=== PATIENT | female | born 1950 | race Caucasian/White ===

== ENCOUNTER 2017-03-17 02:12 | Emergency (ER) | payer OTHER, MEDICAID ==
[~2017-03-17] VITALS: Ht 160 cm; Wt 65.0 kg
[~2017-03-17 02:12] MED LIST: ADVA250A INH; POTA-243 PO; PRIL20TA2 PO; SERT100 PO; VENTAER INH
[2017-03-17 02:26] VITALS: BP 176/87; PULSE 96; RESP 18; TEMP 98.6; O2SAT 98
[2017-03-17] MEDS ORDERED: ONDANSETRON ODT 4 MG TAB PO ONE (03:00)
[2017-03-17] MEDS ORDERED: MORPHINE SULFATE 4 MG/ML INJ IM ONE (03:00)
--- NOTE | 2017-03-17 03:25 | PD ---
HPI . Nausea and vomiting Chief Complaint: GI Complaint Time Seen by Provider: 02:50 Travel History International Travel<30 days: No Contact w/Intl Traveler<30days: No Traveled to known affect area: No History of Present Illness HPI Patient presents with chief complaint of nausea and vomiting. Onset was about 8 PM. She reports several episodes of emesis. No fever. No diarrhea. This patient is status post right ureteral stent yesterday for kidney stone. She states that she vomited her pain medication tonight. She reports right flank pain which she rates 10/10. PFSH Past Medical History Cancer: No Cardiovascular Problems: No Diabetes: No Glaucoma: No Hepatitis: No Hiatal Hernia: No Hypertension: No Medical other: No Respiratory: Yes (ASTHMA) Immunizations Current: Yes Thyroid Disease: No Tetanus Vaccination: Unknown Influenza Vaccination: Yes Past Surgical History Abdominal Surgery: Yes (EXPLORATORY SURGERY,GALL BLADDER) Gynecologic Surgery: Yes (HYSTERECTOMY) Oral Surgery: Yes (TONSILLECTOMY) Pacemaker: No Other Surgery: Yes Social History Alcohol Use: No Tobacco Use: No Substance Use: No Allergies-Medications (Allergen,Severity, Reaction): Coded Allergies: aspirin (Unverified Allergy, Severe, NAUSEA AND VOMITING, 03/17/17) diatrizoate meglumine (Unverified Allergy, Severe, RASH, 03/17/17) gadobenic acid (Unverified Allergy, Severe, RASH, 03/17/17) gadodiamide (Unverified Allergy, Severe, RASH, 03/17/17) gadoteridol (Unverified Allergy, Severe, RASH, 03/17/17) iodixanol (Unverified Allergy, Severe, RASH, 03/17/17) iohexol (Unverified Allergy, Severe, RASH, 03/17/17) penicillin G (Unverified Allergy, Severe, DROWSY, NAUSEA AND VOMITING, 03/17/17) Reported Meds & Prescriptions Reported Meds & Active Scripts Active Reported Ventolin Hfa (Albuterol Sulfate) 18 Gm Aero 2 Puff INH Q4HPRN * SHAKE WELL BEFORE USE * Advair Diskus 250/50 (Salmeterol Xinafoate/Fluticasone) 250 Mcg/50 Mcg Inhp 1 Puff INH BIDPRN K-Dur (Potassium Chloride) 10 Meq Tabcr 0 PO DAILY UNKNOWN DOSE Prilosec Otc (Omeprazole Magnesium) 20 Mg Tab 20 Mg PO DAILY Zoloft (Sertraline HCl) 100 Mg Tab 100 Mg PO DAILY Review of Systems Except as stated in HPI: all other systems reviewed are Neg General / Constitutional: No: Fever, Chills Gastrointestinal: Positive: Nausea, Vomiting Genitourinary: Positive: Flank Pain Physical Exam Narrative GENERAL: Patient is lying on the stretcher with an emesis bag in her lap. SKIN: warm/dry. Normal color. HEAD: Normocephalic. Atraumatic. EYES: Pupils equal and round. No scleral icterus. No injection or drainage. ENT: No nasal bleeding or discharge. Mucous membranes pink and moist. NECK: Trachea midline. Full range of motion without pain.. CARDIOVASCULAR: Regular rate and rhythm. Heart sounds are normal. RESPIRATORY: No accessory muscle use. Clear to auscultation. Breath sounds equal bilaterally. GASTROINTESTINAL: Abdomen soft. Right sided tenderness. Right CVA tenderness. Bowel sounds present. Nondistended. MUSCULOSKELETAL: No obvious deformities. NEUROLOGICAL: Awake and alert. No obvious cranial nerve deficits. Motor grossly within normal limits. Normal speech. PSYCHIATRIC: Appropriate mood and affect; insight and judgment normal. Data Data Last Documented VS Vital Signs Date Time Temp Pulse Resp B/P (MAP) Pulse Ox O2 Delivery O2 Flow Rate FiO2 03/17/17 03:31 16 03/17/17 02:26 98.6 96 176/87 (116) 98 Orders Orders Ondansetron Odt (Zofran Odt) (03/17/17 03:00) Morphine Inj (Morphine Inj) (03/17/17 03:00) MDM Medical Decision Making Medical Screen Exam Complete: Yes Emergency Medical Condition: Yes Differential Diagnosis Differential diagnosis of flank pain includes but is not limited to kidney stone , pyelonephritis, musculoskeletal pain, PE Differential diagnosis includes but is not limited to viral gastritis, food poisoning, pancreatitis, pneumonia, hepatitis, acute coronary syndrome, Narrative Course This patient presents complaining with nausea and vomiting that started this evening. She is status post right ureteral stent yesterday. She states that she vomited her pain medicine. She comes in complaining with both pain in the right flank area and nausea and vomiting. I have ordered Zofran ODT and IM morphine. This patient is now resting comfortably. Diagnosis Primary Impression: Renal colic on right side Additional Impression: Nausea and vomiting Qualified Codes: R11.2 - Nausea with vomiting, unspecified Patient Instructions: Acute Nausea and Vomiting (DC), General Instructions Med/Other Pt SpecificInfo: Prescription(s) given Scripts Ondansetron (Zofran) 4 Mg Tab 4 MG PO Q6HR Y for NAUSEA OR VOMITING, #10 TAB 0 Refills Prov: Jessica Solis MD 03/17/17 Disposition: 01 DISCHARGE HOME Condition: Stable Jessica Solis MD Mar 17, 2017 03:25
[2017-03-17 03:31] VITALS: RESP 16
[2017-03-17] MEDS ORDERED: ZOFR4TAB PO (04:04)
== END 2017-03-17 04:56 | disposition home or self-care (01) ==
LOC: NEPE 02:12
DX: N23 Unspecified renal colic (principal); R11.2 Nausea with vomiting, unspecified
CPT/HCPCS: 96372; 99284; J2270